=== PATIENT | female | born 1950 | race Caucasian/White ===

== ENCOUNTER 2017-03-14 08:15 | Emergency (ER) | payer MEDICARE, MEDICAID ==
[~2017-03-14] VITALS: Ht 165.1 cm; Wt 73.5 kg
[~2017-03-14 08:15] MED LIST: ATEN50TA PO; ENAL2.5T PO; GLYB5TAB8 PO; IRONTAB35 PO; METF-312 PO; MULT-351 PO; PAR20T PO; SPIR25TA89 PO
[2017-03-14 08:32] VITALS: BP 126/56
== END 2017-03-14 10:02 | disposition home or self-care (01) ==
LOC: ER 08:19
DX: S16.1XXA Strain of muscle, fascia and tendon at neck level, initial encounter (principal); M54.5 Low back pain; C18.9 Malignant neoplasm of colon, unspecified; Z90.710 Acquired absence of both cervix and uterus; V43.52XA Car driver injured in collision with other type car in traffic accident, initial encounter; Y93.89 Activity, other specified; Y92.89 Other specified places as the place of occurrence of the external cause; Y99.8 Other external cause status
CPT/HCPCS: 72040; 72070; 72110

== ENCOUNTER 2017-10-16 13:13 | Emergency (ER) | payer MEDICARE, MEDICAID ==
[~2017-10-16] VITALS: Ht 165.1 cm; Wt 68.5 kg
[~2017-10-16 13:13] MED LIST changes: -METF-312 PO; +METF-370 PO
[2017-10-16 14:56] VITALS: BP 130/61
[2017-10-16 15:38] LABS: Urine Amorphous Crystal FEW /hpf (None Seen); Urine Bacteria MANY /hpf (None Seen); Urine Blood 1+ /uL (Negative); Urine Mucus FEW (None Seen); Urine Specific Gravity 1.014 (1.001-1.035); Urine WBC 576 /hpf (0 - 5); Urine WBC Clumps PRESENT /hpf (None Seen)
== END 2017-10-16 15:59 | disposition home or self-care (01) ==
LOC: ER 13:18
DX: N39.0 Urinary tract infection, site not specified (principal); E11.9 Type 2 diabetes mellitus without complications; Z90.710 Acquired absence of both cervix and uterus
CPT/HCPCS: 51702; 81001; 81002